=== PATIENT | male | born 1955 | race Caucasian/White ===

== ENCOUNTER → 2024-01-11 | Outpatient (CLI) | payer MEDICARE ==
--- NOTE | 2024-01-11 17:33 | XR ---
EXAMINATION TYPE: XR Hip Complete RT DATE OF EXAM: 01/11/2024 5:03 PM COMPARISON: None CLINICAL INDICATION: Male, 68 years old with history of [id number] RT HIP PAIN; [facility] TECHNIQUE: XR Hip Complete RT; Frontal and lateral views FINDINGS: No evidence for acute process, joint dislocation or significant soft tissue swelling. Osteo phyte formation of the superior acetabulum of the hip. There is mild joint space narrowing. IMPRESSION: 1. No evidence for acute process. 2. Mild hip osteoarthrosis. [facility], , 01/11/2024 5:31 PM
== END | disposition home or self-care (01) ==
LOC: RADXRYALE 16:45
PROVIDERS: ATTEND Family Medicine
DX: M16.11 Unilateral primary osteoarthritis, right hip (principal)
CPT/HCPCS: 73502

== ENCOUNTER 2024-02-21 14:34 | Emergency (ER) | payer MEDICARE ==
[2024-02-21 14:59] VITALS: TEMP 97.7
--- NOTE | 2024-02-21 15:31 | ED ---
Abdominal Pain HPI - General Source: patient, family, RN notes reviewed Mode of arrival: wheelchair Limitations: no limitations <Virgen Austin - Last Filed: 02/21/24 15:31> <Karma Dwyer - Last Filed: 02/25/24 11:15> - General Chief Complaint: Abdominal Pain Stated Complaint: groin pain Time Seen by Provider: 02/21/24 15:31 - History of Present Illness Initial Comments: Quick note: 68-year-old male presented the ER for evaluation of right leg/groin pain. Patient states about a month ago he twisted and felt a pop in his right groin. He states it was improving until about 3 weeks ago seem to worsen. He is endorsing right lower quadrant abdominal pain and sciatica pain. He reports a decreased urine output. Patient has been taking tramadol. (Virgen Austin) 68-year-old male presents emergency department with right flank pain which radiates around to the right groin. States that the pain started after he twisted and felt a pop. Pain has been slightly improving however over the past couple days got worse again. He did see his primary care doctor. He was started on tramadol. States that he it mildly helps the pain. He had x-rays performed. He does have a history of kidney stones. [place] as if his urination was slightly decreased and therefore presents today for evaluation of possible kidney stones. He denies any issues with his bowel habits. No diarrhea, constipation, black or bloody stools. No chest pain or difficulty breathing. No fevers. No saddle anesthesia. No bowel or bladder incontinence. No other alleviating, precipitating modifying factors (Karma Dwyer) - Related Data Previous Rx's Medication Instructions Recorded HYDROcodone/APAP 7.5-325MG [Henry 1 tab PO Q4HR #18 tab 02/21/24 7.5-325] Allergies Allergy/AdvReac Type Severity Reaction Status Date / Time No Known Allergies Allergy Verified 02/21/24 14:58 Review of Systems ROS Other: All systems not noted in ROS Statement are negative. <Virgen Austin - Last Filed: 02/21/24 15:31> ROS Other: All systems not noted in ROS Statement are negative. <Karma Dwyer - Last Filed: 02/25/24 11:15> ROS Statement: Those systems with pertinent positive or pertinent negative responses have been documented in the HPI. Past Medical History Additional Past Medical History / Comment(s): KIDNEY STONES Past Surgical History: Tonsillectomy <Virgen Austin - Last Filed: 02/21/24 15:31> General Exam Limitations: no limitations <Virgen Austin - Last Filed: 02/21/24 15:31> General appearance: alert, in no apparent distress Head exam: Present: atraumatic, normocephalic, normal inspection Eye exam: Present: normal appearance, PERRL, EOMI. Absent: scleral icterus, conjunctival injection, periorbital swelling ENT exam: Present: normal exam, mucous membranes moist Neck exam: Present: normal inspection. Absent: tenderness, meningismus, lymphadenopathy Respiratory exam: Present: normal lung sounds bilaterally. Absent: respiratory distress, wheezes, rales, rhonchi, stridor Cardiovascular Exam: Present: regular rate, normal rhythm, normal heart sounds. Absent: systolic murmur, diastolic murmur, rubs, gallop, clicks GI/Abdominal exam: Present: soft, normal bowel sounds. Absent: distended, tenderness, guarding, rebound, rigid Extremities exam: Present: normal inspection, full ROM, normal capillary refill, other (5 out of 5 muscle strength in the bilateral lower extremities). Absent: tenderness, pedal edema, joint swelling, calf tenderness Back exam: Present: normal inspection, paraspinal tenderness (To the right paraspinal muscles) Neurological exam: Present: alert, oriented X3, CN II-XII intact Psychiatric exam: Present: normal affect, normal mood Skin exam: Present: warm, dry, intact, normal color. Absent: rash <Karma Dwyer - Last Filed: 02/25/24 11:15> - General Exam Comments Initial Comments: Visual Physical Exam Vital signs reviewed General: Well-appearing, nontoxic, no acute distress. Head: Normocephalic, atraumatic Eyes: PERRLA, EOMI ENT: Airway patent Chest: Nonlabored breathing Skin: No visual rash, normal skin tone Neuro: Alert and oriented 3 Musculoskeletal: No gross abnormalities (Virgen Austin) Course Vital Signs 02/21/24 02/21/24 14:55 18:15 Temperature 97.7 F Pulse Rate 63 61 Respiratory 16 18 Rate Blood Pressure 231/104 197/95 O2 Sat by Pulse 99 98 Oximetry Medical Decision Making <Virgen Austin - Last Filed: 02/21/24 15:31> - Lab Data Result diagrams: 02/21/24 15:46 02/21/24 15:46 <Karma Dwyer - Last Filed: 02/25/24 11:15> - Medical Decision Making I performed the quick note portion of this chart. Electronically signed by Virgen Austin PA-C (Virgen Autsin) Was pt. sent in by a medical professional or institution (SHANIKA Fletcher, DIVE SUPERINTENDENT, urgent care, hospital, or jail...) When possible be specific @ -No Did you speak to anyone other than the patient for history (EMS, parent, family, police, friend...)? What history was obtained from this source @ -No Did you review nursing and triage notes (agree or disagree)? Why? @ -I reviewed and agree with nursing and triage notes Were old charts reviewed (outside hosp., previous admission, EMS record, old EKG, old radiological studies, urgent care reports/EKG's, jail records)? Report findings @ -No old charts were reviewed Differential Diagnosis (chest pain, altered mental status, abdominal pain women, abdominal pain men, vaginal bleeding, weakness, fever, dyspnea, syncope, headache, dizziness, GI bleed, back pain, seizure, CVA, palpatations, mental health, musculoskeletal)? @ -Differential Back Pain: Strain, zoster, cauda equina syndrome, epidural abscess, vertebral osteomyelitis, discitis, fracture, subluxation, disc herniation, DJD, spinal stenosis, dissection, AAA, pancreatitis, peptic ulcer disease, pyelonephritis, kidney stone, this is not meant to be an all-inclusive list. EKG interpreted by me (3pts min.). @ -Not done X-rays interpreted by me (1pt min.). @ -None done CT interpreted by me (1pt min.). @ -Yes. No kidney stone identified however patient does have significant disc disease U/S interpreted by me (1pt. min.). @ -None done What testing was considered but not performed or refused? (CT, X-rays, U/S, labs)? Why? @ -None What meds were considered but not given or refused? Why? @ -None Did you discuss the management of the patient with other professionals (professionals i.e. , PA, DIVE SUPERINTENDENT, lab, RT, psych nurse, social services coordinator, day guard, teacher, corporate security officer, block and case maker)? Give summary @ -No Was smoking cessation discussed for >3mins.? @ -No Was critical care preformed (if so, how long)? @ -No Were there social determinants of health that impacted care today? How? (Homelessness, low income, unemployed, alcoholism, drug addiction, transportation, low edu. Level, literacy, decrease access to med. care, [facility], rehab)? @ -No Was there de-escalation of care discussed even if they declined (Discuss DNR or withdrawal of care, Hospice)? DNR status @ -No What co-morbidities impacted this encounter? (DM, HTN, Smoking, COPD, CAD, Cancer, CVA, ARF, Chemo, Hep., AIDS, mental health diagnosis, sleep apnea, morbid obesity)? @ -None Was patient admitted / discharged? Hospital course, mention meds given and route, prescriptions, significant lab abnormalities, going to OR and other pertinent info. @ -Upon arrival patient seen and evaluated in bed 2. Thorough history and physical exam was performed. He is offered something for pain control but refuses. Patient is sent for CT. No kidney stone however is remarkable for disc disease. I discussed results with the patient. Patient symptoms are like ly due to lumbar disc disease. I did recommend MRI. At this time the patient will be discharged home. We will discontinue his tramadol and start him on a short course of Henry. He is to take the medications only as needed for significant pain. Follow-up with his doctor. Will need an MRI of his low back if his pain continues. Return for any new or worsening symptoms. Patient agreeable plan was discharged in stable condition Undiagnosed new problem with uncertain prognosis? @ -No Drug Therapy requiring intensive monitoring for toxicity (Heparin, Nitro, Insulin, Cardizem)? @ -No Were any procedures done? @ -No Diagnosis/symptom? @ -Acute right flank/groin pain, lumbar disc disease Acute, or Chronic, or Acute on Chronic? @ -Acute Uncomplicated (without systemic symptoms) or Complicated (systemic symptoms)? @ -Complicated Side effects of treatment? @ -No Exacerbation, Progression, or Severe Exacerbation? @ -No Poses a threat to life or bodily function? How? (Chest pain, [place], [place], pneumonia, PE, COPD, DKA, ARF, appy, cholecystitis, CVA, Diverticulitis, Homicidal, Suicidal, threat to staff... and all critical care pts) @ -No (Karma Dwyer) - Lab Data Lab Results 02/21/24 02/21/24 02/21/24 Range/Units 15:46 15:46 15:46 WBC 9.8 (3.8-10.6) k/uL RBC 5.30 (4.30-5.90) m/uL Hgb 16.0 (13.0-17.5) gm/dL Hct 48.4 (39.0-53.0) % MCV 91.4 (80.0-100.0) fL MCH 30.3 (25.0-35.0) pg MCHC 33.1 (31.0-37.0) g/dL RDW 13.0 (11.5-15.5) % Plt Count 260 (150-450) k/uL MPV 7.1 Neutrophils % 77 % Lymphocytes % 15 % Monocytes % 6 % Eosinophils % 1 % Basophils % 0 % Neutrophils # 7.5 (1.3-7.7) k/uL Lymphocytes # 1.4 (1.0-4.8) k/uL Monocytes # 0.6 (0-1.0) k/uL Eosinophils # 0.1 (0-0.7) k/uL Basophils # 0.0 (0-0.2) k/uL Sodium 135 L (137-145) mmol/L Potassium 4.7 (3.5-5.1) mmol/L Chloride 101 (98-107) mmol/L Carbon Dioxide 25 (22-30) mmol/L Anion Gap 9 mmol/L BUN 14 (9-20) mg/dL Creatinine 0.78 (0.66-1.25) mg/dL Est GFR (CKD-EPI)AfAm >90 (>60 ml/min/1.73 sqM) Est GFR (CKD-EPI)NonAf >90 (>60 ml/min/1.73 sqM) Glucose 156 H (74-99) mg/dL Calcium 10.1 (8.4-10.2) mg/dL Total Bilirubin 1.3 (0.2-1.3) mg/dL AST 32 (17-59) U/L ALT 39 (4-49) U/L Alkaline Phosphatase 48 (38-126) U/L Total Protein 9.3 H (6.3-8.2) g/dL Albumin 5.6 H (3.5-5.0) g/dL Urine Color Colorless Urine Appearance Clear (Clear) Urine pH 7.0 (5.0-8.0) Ur Specific [place] 1.015 (1.001-1.035) Urine Protein Negative (Negative) Urine Glucose (UA) 2+ H (Negative) Urine Ketones 1+ H (Negative) Urine Blood Trace H (Negative) Urine Nitrite Negative (Negative) Urine Bilirubin Negative (Negative) Urine Urobilinogen <2.0 (<2.0) mg/dL Ur Leukocyte Esterase Negative (Negative) Urine RBC 6 H (0-5) /hpf Urine WBC 4 (0-5) /hpf Urine Bacteria Rare H (None) /hpf Urine Mucus Rare H (None) /hpf Disposition <Virgen Austin - Last Filed: 02/21/24 15:31> Is patient prescribed a controlled substance at d/c from ED?: Yes When asked, does pt state using other controlled substances?: No If prescribed controlled substance>3 days was MAPS reviewed?: Prescribed <3 Days If opioid is for acute pain is fill amount 7 days or less?: Yes If Rx opioid, was Start Talking consent form obtained?: No Time of Disposition: 17:44 <Karma Dwyer - Last Filed: 02/25/24 11:15> Clinical Impression: Rt groin pain, Right leg pain, Herniated disc Disposition: HOME SELF-CARE Condition: Stable Instructions (If sedation given, give patient instructions): Back Pain (ED) Additional Instructions: Use the pain medications as needed. Stop taking the ultram. Follow-up with your doctor and complete the MRI. Follow-up with the [facility] doctor if interested and return for any new or worsening symptoms Prescriptions: HYDROcodone/APAP 7.5-325MG [Henry 7.5-325] 1 tab PO Q4HR #18 tab Referrals: Nickolas Hanks DO [Primary Care Provider] - 1-2 days Skip,Mike, DO [REFERRING] - 1-2 days Kayley Meza DO [REFERRING] - 1-2 days Margarita Shaw DO [REFERRING] - 1-2 days
--- NOTE | 2024-02-21 15:37 | CT ---
EXAMINATION TYPE: CT abdomen pelvis wo con CT DLP: 663.6 mGycm, Automated exposure control for dose reduction was used. DATE OF EXAM: 02/21/2024 3:23 PM COMPARISON: Right hip radiograph 01/11/2024 CLINICAL INDICATION:Male, 68 years old with history of right flank pain; RT flank pain, back pain. Pt picked up heavy item several weeks ago and felt pain after. Pain radiates into groin. TECHNIQUE: Standard CT of the abdomen and pelvis without IV or oral contrast. Lack of IV or oral co ntrast limits evaluation of solid and hollow organ viscera. Coronal and sagittal reformats were perfo rmed. FINDINGS: LOWER CHEST: The visualized lung bases are clear. Coronary artery calcifications. Mild right gynecoma stia. ABDOMEN LIVER: Unremarkable noncontrast appearance GALLBLADDER AND BILE DUCTS: Unremarkable noncontrast appearance PANCREAS: Unremarkable noncontrast appearance SPLEEN: Unremarkable noncontrast appearance ADRENAL GLANDS: Unremarkable noncontrast appearance. KIDNEYS AND URETERS: No evidence of hydronephrosis or renal calculus. No ureteral calculus identified . PELVIS BLADDER: Unremarkable REPRODUCTIVE: Prostate is enlarged in size measuring 5.0 cm in transverse dimension. Central prostate calcifications noted. ABDOMEN & PELVIS STOMACH AND BOWEL: Stomach and duodenum are unremarkable. Couple of scattered colonic diverticula wit hout evidence for acute diverticulitis. No focal bowel wall thickening or stranding inflammatory walker ges. The appendix is within normal limits. No evidence of bowel obstruction. PERITONEUM: No evidence of pneumoperitoneum or free fluid. VASCULATURE: Mild atherosclerotic calcifications are present throughout the abdominal aorta and its b ranches. No evidence of aortic aneurysm. Pelvic phleboliths. MUSCULOSKELETAL: No acute osseous abnormalities. Degenerative changes of the left SI joint with anter ior bridging. Broad-based disc bulges at L3-L4, L4-L5, and L5-S1 with mild effacement of the anterior thecal sac. LYMPH NODES: No gross evidence for lymphadenopathy. SOFT TISSUE/ABDOMINAL WALL: Unremarkable. No inguinal or umbilical hernia identified. IMPRESSION: 1. No acute abdominal/pelvic process within limitations of a noncontrast exam. 2. Few colonic diverticula without evidence for acute diverticulitis. 3. Prostatomegaly. 4. Mild multilevel degenerative disc disease. [facility], , 02/21/2024 3:35 PM
[2024-02-21 16:04] LABS: Basophils % (A) 0 %; Eosinophils # (A) 0.1 k/uL (0-0.7); Eosinophils % (A) 1 %; HCT 48.4 % (39.0-53.0); Lymphocytes # (A) 1.4 k/uL (1.0-4.8); Lymphocytes % (A) 15 %; MCH 30.3 pg (25.0-35.0); MCHC 33.1 g/dL (31.0-37.0); MCV 91.4 fL (80.0-100.0); Mean Platelet Volume 7.1; Monocytes # (A) 0.6 k/uL (0-1.0); Monocytes % (A) 6 %; Neutrophils # (A) 7.5 k/uL (1.3-7.7); Neutrophils % (A) 77 %; Platelet Count 260 k/uL (150-450); WBC 9.8 k/uL (3.8-10.6)
[2024-02-21 16:16] LABS: ALT 39 U/L (4-49); African American GFR (CKD) >90 (>60 ml/min/1.73 sqM); Anion Gap 9 mmol/L; Blood Urea Nitrogen 14 mg/dL (9-20); Calcium 10.1 mg/dL (8.4-10.2); Carbon Dioxide 25 mmol/L (22-30); Chloride 101 mmol/L (98-107); Glucose 156 mg/dL (74-99); Non-African American GFR(CKD) >90 (>60 ml/min/1.73 sqM); Sodium 135 mmol/L (137-145); Total Bilirubin 1.3 mg/dL (0.2-1.3)
[2024-02-21 16:17] LABS: Appearance,Urine Clear (Clear); Bacteria,Urine Rare /hpf; Bilirubin,Urine Negative (Negative); Blood,Urine Trace (Negative); Color,Urine Colorless; Glucose,Urine (UA) 2+ (Negative); Ketones,Urine 1+ (Negative); Leukocyte Esterase,Urine Negative (Negative); Mucus,Urine Rare /hpf; Nitrite,Urine Negative (Negative); Protein,Urine Negative (Negative); RBC,Urine 6 /hpf (0-5); Specific Gravity,Urine 1.015 (1.001-1.035); Urobilinogen,Urine <2.0 mg/dL (<2.0); WBC,Urine 4 /hpf (0-5)
[2024-02-21 16:19] LABS: AST 32 U/L (17-59); Albumin 5.6 g/dL (3.5-5.0); Alkaline Phosphatase 48 U/L (38-126); Potassium 4.7 mmol/L (3.5-5.1); Total Protein 9.3 g/dL (6.3-8.2)
[2024-02-21 18:16] VITALS: BP 197/95; PULSE 61; RESP 18
== END 2024-02-21 18:16 | disposition home or self-care (01) ==
LOC: EC 14:34
DX: M51.27 Other intervertebral disc displacement, lumbosacral region (principal); M79.604 Pain in right leg
CPT/HCPCS: 36415; 74176; 80053; 81001; 85025; 99284

== ENCOUNTER → 2024-03-07 | Outpatient (CLI) | payer MEDICARE ==
--- NOTE | 2024-03-07 15:00 | XR ---
EXAMINATION TYPE: XR knee complete RT DATE OF EXAM: 03/07/2024 COMPARISON: NONE CLINICAL INDICATION: Male, 68 years old with history of [id number] RT KNEE PAIN; TECHNIQUE: 3 views FINDINGS: Trace joint effusion. No acute fracture, subluxation, dislocation seen. IMPRESSION: No acute osseous abnormality seen. A trace knee joint effusion is nonspecific. If symptoms persist, c onsider MRI. [facility], , 03/07/2024 2:58 PM
== END | disposition home or self-care (01) ==
LOC: RADXRYALE 14:23
PROVIDERS: ATTEND Family Medicine
DX: M25.461 Effusion, right knee (principal)